=== PATIENT | female | born 1965 | race Caucasian/White ===

== ENCOUNTER 2020-04-26 14:03 | Outpatient (REF) | payer MEDICARE, MEDICAID, SELFPAY | END 2020-04-26 14:04 | disposition home or self-care (01) | LOC: HO.LAB 14:03 | PROVIDERS: PCP Internal Medicine; Referring Provider Internal Medicine; Visit Provider Physician Assistant | DX: Z01.812 Encounter for preprocedural laboratory examination (principal); M17.11 Unilateral primary osteoarthritis, right knee; Z87.891 Personal history of nicotine dependence; Z88.0 Allergy status to penicillin; Z88.8 Allergy status to other drugs, medicaments and biological substances | CPT/HCPCS: 99214 ==

== ENCOUNTER 2020-05-01 06:26 | Inpatient (IN) | payer MEDICARE, MEDICAID, SELFPAY ==
[2020-04-16 09:03] VITALS: BMI 29.5
[2020-04-17 12:24] VITALS: BMI 28.3
[2020-04-17 12:49] VITALS: BP 128/79; PULSE 67; RESP 18; O2SAT 97
--- NOTE | 2020-04-17 13:15 | HO.ANESPROP2 ---
Documented by User: Helene Cruzney 04/30/20 08:58 HPI - Anesthesia Eval Consult details Narrative: 54yo F for R TKA PCP cleared anaphylaxis to morphine, demerol, diclofenac, flagyl, celebrex PMFSH Past Medical History Medical History Anemia Arthritis Asthma Back pain Depression Elevated cholesterol GERD (gastroesophageal reflux disease) History of fibromyalgia History of headache History of traumatic head injury Hx of fracture of patella Hx of strabismus Wears reading eyeglasses Functional capacity: independent ambulation Surgical History Surgical History H/O colonoscopy History of esophagogastroduodenoscopy (EGD) History of surgery on wrist Hx of arthroscopic knee surgery Hx of reduction mammoplasty History of Problems with Anesthesia: No Social History Social History Are you a primary spiritual care coordinator to a significant other at home: Yes Do you presently have visiting nurse or other home services: No Smoking Status: Former smoker Years Smoked: 18 Smoked in Last 30 Days: No Smoking Quit Date: 2002 Use of substances other than those prescribed or required for medical reasons: Yes Substance Use Type: Marijuana Substance Use Frequency: Daily Have you been hit, kicked, punched, or otherwise hurt by someone within the past year? If so, by whom?: No Advance Directives Information Provided: No Recently lost weight without trying: Yes Meds Allergies Allergy/AdvReac Type Severity Reaction Status Date / Time meperidine [Demerol] Allergy Severe Anaphylaxis Verified 04/26/20 14:06 metronidazole [Flagyl] Allergy Severe Anaphylaxis Verified 04/26/20 14:06 morphine Allergy Severe Anaphylaxis Verified 04/26/20 14:06 celecoxib [Celebrex] Allergy Intermediate shortness Verified 04/26/20 14:06 of breath ciprofloxacin [Cipro] Allergy Intermediate hives Verified 04/26/20 14:06 nitrofurantoin [Macrobid] Allergy Intermediate hives Verified 04/26/20 14:06 penicillin V Allergy Intermediate Rash Verified 04/26/20 14:06 Diclofenac Potassium Allergy Severe Anaphylaxis Uncoded 04/17/20 12:48 Benadryl Allergy Intermediate Itching Uncoded 04/17/20 12:48 Home Medications Medication Instructions Recorded Confirmed Type acetaminophen 500 mg PO Q6H PRN 04/17/20 04/17/20 History albuterol 90 mcg INHALATION Q4-6H PRN 04/17/20 04/17/20 History atorvastatin 1 tab PO BEDTIME 04/17/20 04/17/20 History cholecalciferol (vitamin D3) 1 tab PO BEDTIME 04/17/20 04/17/20 History [Vitamin D3] pregabalin 1 cap PO BEDTIME 04/17/20 04/17/20 History pregabalin 1 cap PO QAM 04/17/20 04/17/20 History Exam Exam Date and Time: April 17, 2020 1315 Height,Weight and Vital Signs: Height 4 ft 11.5 in Weight 64.864 kg Last Vital Signs Pulse 67 04/17/20 12:49 Resp 18 04/17/20 12:49 BP 128/79 04/17/20 12:49 Pulse Ox 97 04/17/20 12:49 Pertinent Lab Results Pertinent Lab Results: Laboratory Tests 03/28/20 03/28/20 04/26/20 11:15 11:15 15:05 WBC 8.6 Hgb 14.0 Hct 41.7 Plt Count 352 Sodium 148 H Potassium 5.4 H Chloride 111 H BUN 14 Creatinine 0.78 Blood Type A Positive Antibody Screen NEGATIVE Narrative Narrative: EKG 03/2020: NSR with SA @ 74 Airway Mallampati Class: I TM Dist: >3cm Neck ROM: Full Loose/Missing/Broken Teeth: Yes (Molars missing) Heart: RRR Lungs: CTAB Assessment and Plan Assessment Anesthesia Assessment: Anesthesia Plan Discussed and PAT Visit Documented by User: Shayne Nugent MD 05/01/20 07:33 [facility] Past Medical History Medical History Anemia Arthritis Asthma Back pain Depression Elevated cholesterol GERD (gastroesophageal reflux disease) History of fibromyalgia History of headache History of traumatic head injury Hx of fracture of patella Hx of strabismus Wears reading eyeglasses Surgical History Surgical History H/O colonoscopy History of esophagogastroduodenoscopy (EGD) History of surgery on wrist Hx of arthroscopic knee surgery Hx of reduction mammoplasty Social History Social History Are you a primary spiritual care coordinator to a significant other at home: Yes Do you presently have visiting nurse or other home services: No Smoking Status: Former smoker Years Smoked: 18 Smoked in Last 30 Days: No Smoking Quit Date: 2002 Use of substances other than those prescribed or required for medical reasons: Yes Substance Use Type: Marijuana Substance Use Frequency: Daily Have you been hit, kicked, punched, or otherwise hurt by someone within the past year? If so, by whom?: No Advance Directives Information Provided: No Recently lost weight without trying: Yes Meds Allergies Allergy/AdvReac Type Severity Reaction Status Date / Time meperidine [Demerol] Allergy Severe Anaphylaxis Verified 04/26/20 14:06 metronidazole [Flagyl] Allergy Severe Anaphylaxis Verified 04/26/20 14:06 morphine Allergy Severe Anaphylaxis Verified 04/26/20 14:06 celecoxib [Celebrex] Allergy Intermediate shortness Verified 04/26/20 14:06 of breath ciprofloxacin [Cipro] Allergy Intermediate hives Verified 04/26/20 14:06 nitrofurantoin [Macrobid] Allergy Intermediate hives Verified 04/26/20 14:06 penicillin V Allergy Intermediate Rash Verified 04/26/20 14:06 Diclofenac Potassium Allergy Severe Anaphylaxis Uncoded 04/17/20 12:48 Benadryl Allergy Intermediate Itching Uncoded 04/17/20 12:48 Home Medications Medication Instructions Recorded Confirmed Type acetaminophen 500 mg PO Q6H PRN 04/17/20 04/17/20 History albuterol 90 mcg INHALATION Q4-6H PRN 04/17/20 04/17/20 History atorvastatin 1 tab PO BEDTIME 04/17/20 04/17/20 History cholecalciferol (vitamin D3) 1 tab PO BEDTIME 04/17/20 04/17/20 History [Vitamin D3] pregabalin 1 cap PO BEDTIME 04/17/20 04/17/20 History pregabalin 1 cap PO QAM 04/17/20 04/17/20 History Assessment and Plan Assessment Anesthesia Assessment: Anesthesia Plan Discussed and Chart Reviewed Final Anesthetic Review NPO: Yes ASA Class: II Final Preanesthetic Review: No Changes in Pt Med Stat, Meds/Allgs Chart Reviewed, Consent Obtained/Reviewed and Anes Risks/Benef Reviewed Patient Risk: Low Procedure Risk: Intermediate Anesthetic Plan Anesthetic Plan: MAC:, Spinal and Regional Block Disposition: Standard PACU
--- NOTE | 2020-04-17 13:40 | SUR.PREOP ---
povidone iodine swab not done, entered for PAT by ortho office, needs to be done day of surgery
[2020-04-17 15:42] LABS: MRSA Nasal PCR NEGATIVE (Negative); SA Nasal PCR NEGATIVE (Negative)
[2020-05-01] VITALS (13 sets, daily range): BP systolic 99–159; BP diastolic 61–80; PULSE 60–94; RESP 16–20; TEMP 36.1–36.8; O2SAT 96–100
[2020-05-01] MEDS: Lactated Ringers 1,000 ML 100 ML IVCONT (06:39)
[2020-05-01] MEDS: Gabapentin 600 MG TABLET PO (06:41)
--- NOTE | 2020-05-01 06:59 | PC.NURSE ---
REGARDING USE OF INHALER PATIENT STATES I MADE A MISTAKE ONCE WHEN I WAS CLEANING AND MIXED CLOROX AND AJAX BY ACCIDENT AND THEN THEY GAVE ME AN INHALER. I DONT KNOW WHY. I HAVE NEVER NEEDED OR USED IT AND THEY KEEP GIVING IT TO ME. DENIES ANY USE OF INHALER, DENIES WHEEZING OR SOB. LUNG SOUNDS CLEAR THROUGHOUT.
[2020-05-01 07:01] LABS: Anion Gap 13 (12-20); Carbon Dioxide 27 mmol/L (22-29); Chloride 104 mmol/L (96-108); Sodium 140 mmol/L (135-145)
[2020-05-01 07:03] LABS: SARS COV2 PCR INHOUSE NEGATIVE (Negative)
--- NOTE | 2020-05-01 07:41 | MHC.SHP ---
Pre-Procedural Eval Section A The patient is an INPATIENT: No Changes since office visit: Yes Patient answered all questions; No Cold of Flu in the past 2 weeks, No New Medical Problems and No Changes in Medication The History & Physical has been completed within 30 days and I have reviewed it.: Yes Section B Chief Complaint: Right Knee Osteoarthritis/total knee arthroplasty Allergies: Allergies Allergy/AdvReac Type Severity Reaction Status Date / Time meperidine [Demerol] Allergy Severe Anaphylaxis Verified 04/26/20 14:06 metronidazole [Flagyl] Allergy Severe Anaphylaxis Verified 04/26/20 14:06 morphine Allergy Severe Anaphylaxis Verified 04/26/20 14:06 celecoxib [Celebrex] Allergy Intermediate shortness Verified 04/26/20 14:06 of breath ciprofloxacin [Cipro] Allergy Intermediate hives Verified 04/26/20 14:06 nitrofurantoin [Macrobid] Allergy Intermediate hives Verified 04/26/20 14:06 penicillin V Allergy Intermediate Rash Verified 04/26/20 14:06 Diclofenac Potassium Allergy Severe Anaphylaxis Uncoded 04/17/20 12:48 Benadryl Allergy Intermediate Itching Uncoded 04/17/20 12:48 Plan Patient has been examined and remains a candidate for the planned procedure
[2020-05-01] MEDS: vancomycin HCL 1,000 MG in 0.9 % Sodium Chloride 250 ML 270 MG IV ×2 (07:43→20:24)
--- NOTE | 2020-05-01 09:07 | PM.OP ---
Brief Operative Note Date of procedure: 05/01/20 Pre-op diagnosis: right knee oa Post-op diagnosis: same Procedure: right tka Implants: javier triathalon press fit /a Surgeon: Lalito Wong MD Anesthesia: regional and spinal Estimated blood loss (mL): 150 IV fluids (mL): 500 Pathology: other Condition: stable Disposition: PACU
--- NOTE | 2020-05-01 10:39 | XR_ITS ---
EXAMINATION: XR KNEE, RIGHT CLINICAL INFORMATION: Post right knee replacement COMPARISON: Previous x-ray May 2019 TECHNIQUE: Two views of the right knee. FINDINGS: There is a new 3 component right knee replacement in satisfactory position. No fracture or dislocation is seen. There are postoperative changes of the soft tissues. XR/XR knee RT 2V IMPRESSION: Satisfactory appearance of right knee replacement.
[2020-05-01] MEDS: Dextrose 5 % and 0.9 % NaCl 1,000 ML 80 ML IVCONT (10:50)
[2020-05-01] MEDS: 0.9 % Sodium Chloride Flush 3 ML SYRINGE IVFLUSH (10:51)
--- NOTE | 2020-05-01 11:29 | PM.IMCN ---
History of Present Illness Data of Consult Service Date: 05/01/20 <JUHI Jackson - Last Filed: 05/01/20 11:50> Requesting physician: Ed Rowe <JUHI Jackson - Last Filed: 05/01/20 11:50> Primary Care Provider: Yomaira Corrigan MD <JUHI Jackson - Last Filed: 05/01/20 11:50> HPI Reason for consult: medical management <JUHI Jackson - Last Filed: 05/01/20 11:50> this is a 54-year-old female who was admitted to the Orthopedic Service for scheduled right total knee arthroplasty. The hospitalists were asked to see her in consultation for medical management. Patient has a history of fibromyalgia and dyslipidemia. She has just returned to the floor from PACU and has not yet eaten or voided. She has no specific complaints at this time. <JUHI Jackson - Last Filed: 05/01/20 11:50> Review of Systems Review of Systems: Yes all other systems are reviewed and are negative <JUHI Jackson - Last Filed: 05/01/20 11:50> Constitutional: Constitutional: Denies chills and Denies fever(s) <JUHI Jackson - Last Filed: 05/01/20 11:50> Cardiovascular: Cardiovascular: Denies chest pain <JUHI Jackson - Last Filed: 05/01/20 11:50> Respiratory: Respiratory: Denies cough <JUHI Jackson - Last Filed: 05/01/20 11:50> Gastrointestinal: Gastrointestinal: Denies abdominal pain <JUHI Jackson Last Filed: 05/01/20 11:50> [facility] Medical History: Medical History (Updated 05/01/20 @ 11:46 by JUHI Jackson) Anemia Arthritis Asthma Back pain Depression Elevated cholesterol GERD (gastroesophageal reflux disease) History of fibromyalgia History of headache History of traumatic head injury Hx of fracture of patella Hx of strabismus Wears reading eyeglasses <JUHI Jackson Last Filed: 05/01/20 11:50> Functional capacity: independent ambulation <JUHI Jackson Last Filed: 05/01/20 11:50> Surgical History: Surgical History (Updated 05/02/20 @ 09:00 by Ed Rowe PA-C) H/O colonoscopy History of esophagogastroduodenoscopy (EGD) History of surgery on wrist Hx of arthroscopic knee surgery Hx of reduction mammoplasty <JUHI Jackson Last Filed: 05/01/20 11:50> Social History: Social History Are you a primary dialysis patient care technician to a significant other at home: Yes Do you presently have visiting nurse or other home services: No Smoking Status: Former smoker Years Smoked: 18 Smoked in Last 30 Days: No Smoking Quit Date: 2002 Use of substances other than those prescribed or required for medical reasons: Yes Substance Use Type: Marijuana Substance Use Frequency: Daily Currently Displaying Signs/Symptoms of Drug Intoxication Withdrawal: No Have you been hit, kicked, punched, or otherwise hurt by someone within the past year? If so, by whom?: No Advance Directives Information Provided: No Do you have thoughts of harming others: None Do you have a plan to hurt others: No Plan Recently lost weight without trying: Yes <JUHI Jackson Last Filed: 05/01/20 11:50> Meds Allergies/Adverse reactions: Allergies Allergy/AdvReac Type Severity Reaction Status Date / Time meperidine [Demerol] Allergy Severe Anaphylaxis Verified 04/26/20 14:06 metronidazole [Flagyl] Allergy Severe Anaphylaxis Verified 04/26/20 14:06 morphine Allergy Severe Anaphylaxis Verified 04/26/20 14:06 celecoxib [Celebrex] Allergy Intermediate shortness Verified 04/26/20 14:06 of breath ciprofloxacin [Cipro] Allergy Intermediate hives Verified 04/26/20 14:06 nitrofurantoin [Macrobid] Allergy Intermediate hives Verified 04/26/20 14:06 penicillin V Allergy Intermediate Rash Verified 04/26/20 14:06 Diclofenac Potassium Allergy Severe Anaphylaxis Uncoded 04/17/20 12:48 Benadryl Allergy Intermediate Itching Uncoded 04/17/20 12:48 <JUHI Jackson Last Filed: 05/01/20 11:50> Home medications: Home Medications Medication Instructions Recorded Confirmed Type acetaminophen 500 mg PO Q6H PRN 04/17/20 04/17/20 History albuterol 90 mcg INHALATION Q4-6H PRN 04/17/20 04/17/20 History atorvastatin 1 tab PO BEDTIME 04/17/20 04/17/20 History cholecalciferol (vitamin D3) 1 tab PO BEDTIME 04/17/20 04/17/20 History [Vitamin D3] pregabalin 1 cap PO BEDTIME 04/17/20 04/17/20 History pregabalin 1 cap PO QAM 04/17/20 04/17/20 History <JUHI Jackson - Last Filed: 05/01/20 11:50> Physical Exam Vital Signs and Narrative: Vital Signs: Last Vital Signs Temp 97.7 F 05/01/20 11:08 Pulse 65 05/01/20 11:08 Resp 18 05/01/20 11:08 BP 131/68 05/01/20 11:08 Pulse Ox 99 05/01/20 11:08 Body Mass Index 28.3 <JUHI Jackson - Last Filed: 05/01/20 11:50> Const: Nutritional Appearance: well nourished <JUHI Jackson Last Filed: 05/01/20 11:50> Orientation/consciousness: patient oriented x3 <JUHI Jackson Last Filed: 05/01/20 11:50> HENMT: Head: Yes normocephalic and Yes atraumatic <JUHI Jackson - Last Filed: 05/01/20 11:50> Eyes: Sclerae: sclerae normal <JUHI Jackson Last Filed: 05/01/20 11:50> Chest: Chest palpation & inspection: normal inspection of the chest <JUHI Jackson Last Filed: 05/01/20 11:50> Resp: Effort & Inspection: normal respiratory effort and no respiratory distress <JUHI Jackson Last Filed: 05/01/20 11:50> Auscultation: clear to auscultation bilaterally <JUHI Jackson Last Filed: 05/01/20 11:50> Cardio: Rate: regular rate <JUHI Jackson Last Filed: 05/01/20 11:50> Rhythm: regular rhythm <JUHI Jackson Last Filed: 05/01/20 11:50> GI: Palpation (GI): Soft to palpation and nontender <JUHI Jacksno Last Filed: 05/01/20 11:50> Skin: General skin exam: no rashes or lesions noted <JUHI Jackson Last Filed: 05/01/20 11:50> Neuro: General: patient oriented x3 <JUHI Jackson Last Filed: 05/01/20 11:50> Cranial nerves: Yes CN's II-XII intact bilaterally <JUHI Jackson Last Filed: 05/01/20 11:50> Extrem: General: Yes normal to inspection <JUHI Jackson Last Filed: 05/01/20 11:50> Results Labs Labs: Laboratory Tests 04/17/20 04/26/20 05/01/20 13:00 15:05 05:43 Sodium Potassium Chloride Carbon Dioxide Anion Gap Nasal Screen MRSA (PCR) NEGATIVE Nasal S. aureus Screen NEGATIVE Nasal MRSA/S.aureus Interp SEE NOTE Coronavirus (PCR) NEGATIVE COVID-19 PCR Cancelled Blood Type A Positive Antibody Screen NEGATIVE 05/01/20 05/01/20 06:22 06:22 Sodium 140 Potassium 4.0 Chloride 104 Carbon Dioxide 27 Anion Gap 13 Nasal Screen MRSA (PCR) Nasal S. aureus Screen Nasal MRSA/S.aureus Interp Coronavirus (PCR) COVID-19 PCR Blood Type A Positive Antibody Screen <JUHI Jackson Last Filed: 05/01/20 11:50> Assessment and Plan (1) Elevated cholesterol: Status: Acute <JUHI Jackson Last Filed: 05/01/20 11:50> this is a 54-year-old female with a history of fibromyalgia, dyslipidemia admitted for elective right total knee arthroplasty s/p right total knee arthroplasty management per Orthopedic Service would recommend following basic labs such as CBC, BMP fibromyalgia continue Lyrica dyslipidemia continue statin there are no other active medical conditions at this time. thank you for allowing us to participate in the care of this patient. We will follow along with you This case was discussed with Dr. Herman <JUHI Jackson - Last Filed: 05/01/20 11:50>
[2020-05-01] MEDS: Pregabalin 200 MG CAPSULE PO (12:45)
[2020-05-01] MEDS: Acetaminophen 325 MG TABLET 650 MG PO ×2 (12:45→18:23)
[2020-05-01] MEDS: HYDROmorphone HCl 0.5 MG/0.5 ML SYRINGE 0.25 MG IVPUSH ×3 (12:49→21:30)
--- NOTE | 2020-05-01 13:00 | OP_ITS ---
SURGEON: Lalito Wong MD INDICATIONS: This is a 54-year-old female with long-standing knee pain secondary to osteoarthritis, unresponsive to conservative measures, who has consented to undergo a right knee arthroplasty. PREOPERATIVE DIAGNOSIS: Right knee osteoarthritis. POSTOPERATIVE DIAGNOSIS: Right knee osteoarthritis. PROCEDURE PERFORMED: Right total knee arthroplasty. ESTIMATED BLOOD LOSS: 150 mL. COMPLICATIONS: None. ANESTHESIA: Spinal and regional. ASSISTANTS: SPECIMENS: FLUIDS: 500. PROCEDURE IN DETAIL: The patient was brought to the operative room, placed supine on the operative table, and prepped and draped in standard sterile fashion. Time-out was called to identify proper site, proper procedure, and proper surgeon. IV antibiotics per weight were administered. I began by making a standard midline incision down in the retinaculum and performed a medial parapatellar arthrotomy. Immediately evident were loose bodies in the anterior interval. I removed these and examined the knee. She had eburnation of the weightbearing portion of the lateral femoral condyle, lateral tibial plateau with posttraumatic scarring of the lateral capsule which made the knee very tight. I placed my retractors, flexed up the knee, removed the fat pad, used René's line to drill my intramedullary femoral guide, made my distal femoral cut in 5 degrees of valgus. I then excised 2 femur, made my anterior and posterior chamfer cuts, making sure not to notch in protecting soft tissue at all times. I then turned my attention to the tibia, where I took approximately 9 mm off the medial side in line with the tibial crest. Extension block was placed to ensure appropriate bony resection. I was happy with this and a 2 tibial trial was placed. The knee was taken through range of motion with trials. I was happy with the range and stability. Therefore, the undersurface of the patella was resurfaced and asymmetric 32A patella was placed. Again, I took the knee through range of motion and was happy with the stability, range, and tracking. I then drilled my lug holes, prepared my tibial metaphysis, and all the instrumentation was removed. Copious irrigation was performed, and I press-fit tibia and femur in standard fashion and patella. I then trialed a 9. With full range of motion, I could not get an 11, therefore 9 was placed. The patient was then irrigated copiously. 3-minute iodine soak with local TXA was applied, and wound was closed in a layered fashion with roland on the skin. The patient was extubated, brought to recovery room in stable condition. There were no known complications. RIVERBOAT CAPTAIN: JUHI Kapoor. GRAFT OR IMPLANTS: [employer], press-fit, 9CR/32A. Lalito Wong MD NE/MODL / [id number]
[2020-05-01] MEDS: oxyCODONE HCl Immed Release 5 MG TABLET 10 MG PO ×3 (14:08→22:40)
[2020-05-01] MEDS: ondansetron HCL 4 MG/2 ML VIAL IVPUSH ×2 (14:09→21:30)
[2020-05-01] MEDS: Pregabalin 150 MG CAPSULE 300 MG PO (20:25)
[2020-05-01] MEDS: Atorvastatin Calcium 80 MG TABLET PO (20:25)
[2020-05-01] MEDS: oxyCODONE HCl ER 10 MG TAB.ER.12H PO (20:25)
[2020-05-02] VITALS (8 sets, daily range): BP systolic 136–160; BP diastolic 62–80; PULSE 86–100; RESP 16–19; TEMP 36.1–36.9; O2SAT 94–98
[2020-05-02] MEDS: Dextrose 5 % and 0.9 % NaCl 1,000 ML 80 ML IVCONT ×2 (00:29→13:09)
[2020-05-02] MEDS: HYDROmorphone HCl 0.5 MG/0.5 ML SYRINGE 0.25 MG IVPUSH ×3 (01:25→10:07)
[2020-05-02] MEDS: 0.9 % Sodium Chloride Flush 3 ML SYRINGE IVFLUSH (01:25)
[2020-05-02] MEDS: oxyCODONE HCl Immed Release 5 MG TABLET 10 MG PO ×5 (04:51→22:11)
[2020-05-02 06:48] LABS: Hematocrit 30.6 % (37-47); Hemoglobin 10.2 g/dl (12.0-16.0)
[2020-05-02 07:19] LABS: Anion Gap 12 (12-20); Blood Urea Nitrogen 12 mg/dL (9-16); Carbon Dioxide 26 mmol/L (22-29); Chloride 105 mmol/L (96-108); Creatinine Clr Calc Pharmacy 75.6; Estimated Glomerular Filt Rate > 60; Glucose Fasting 143 mg/dL (60-99); Potassium 4.6 mmol/l (3.3-5.1); Sodium 138 mmol/L (135-145)
[2020-05-02] MEDS: Acetaminophen 325 MG TABLET 650 MG PO ×3 (07:30→20:28)
[2020-05-02] MEDS: Pregabalin 200 MG CAPSULE PO (08:19)
[2020-05-02] MEDS: oxyCODONE HCl ER 10 MG TAB.ER.12H PO ×2 (08:19→20:28)
--- NOTE | 2020-05-02 08:50 | HO.POSTANES ---
Post Anesthesia Evaluation Post Anesthesia Evaluation Vital Signs: Vital Signs Temp Pulse Resp BP Pulse Ox 05/02/20 03:10 98.4 F 98 17 149/78 H 94 05/01/20 23:37 97.2 F 93 16 155/77 H 96 Anesthesia: Spinal and Nerve Block (Adductor canal block) Mental Status: Awake Pain Control: Satisfactory Nausea/Vomiting: None Hydration: Adequate Anesthesia-Related Issues: No Anes. Related Issues
--- NOTE | 2020-05-02 08:55 | PM.PNORT ---
Subjective Subjective Principal diagnosis: Postop day 1 status post right TKA Interval history: Postop day 1 status post right TKA No overnight events, she was in some discomfort last night due to the pain and having a hard time controlling this. She denies shortness of breath chest pain or palpitations. She was out of bed ambulating with physical therapy down the ruffin with a walker doing okay Physical Exam Vital Signs: Vital Signs: Vital Signs Temp Pulse Resp BP Pulse Ox 05/02/20 08:00 98.2 F 99 19 160/80 H 96 05/02/20 03:10 98.4 F 98 17 149/78 H 94 05/01/20 23:37 97.2 F 93 16 155/77 H 96 05/01/20 20:12 97.4 F 77 18 159/80 H 97 05/01/20 19:04 98.2 F 94 19 120/62 97 05/01/20 16:35 97.1 F 66 18 145/73 H 100 05/01/20 11:08 97.7 F 65 18 131/68 99 05/01/20 10:25 64 18 130/71 97 05/01/20 10:10 61 16 120/61 98 05/01/20 09:55 97.4 F 62 16 115/61 98 05/01/20 09:40 60 16 110/63 98 05/01/20 09:35 67 18 113/66 98 05/01/20 09:30 76 16 99/66 99 05/01/20 09:25 97.0 F 79 16 107/69 98 Body Mass Index 28.3 Const: General: cooperative, healthy appearing and no acute distress Resp: Effort & Inspection: normal respiratory effort and able to speak in complete sentences Cardio: Rate: regular rate Peripheral pulses: Peripheral pulses 2+ throughout GI: Inspection: Yes normal to inspection Palpation (GI): Soft to palpation Skin: General skin exam: no rashes or lesions noted Extrem: Other: Right knee her bandage intact no drainage. No erythema, mild swelling. Range of motion 5-85. Progress Note: A&P Assessment and plan (1) Status post total right knee replacement: Status: Acute Assessment and Plan: Continue pain mgmnt Begin aspirin dvt ppx begin PT for right TKA Dispo planning-Pending PT eval, pain mgmnt Fall Risk Details Current Medications: Current Medications Generic Name Dose Route Start Last Admin Trade Name Freq PRN Reason Stop Dose Admin Acetaminophen 650 mg 05/01/20 10:39 05/02/20 07:30 Acetaminophen 325 Mg Tablet PO 650 mg Q6H PRN Administration Pain, Mild (Pain Scale 1-3) Atorvastatin Calcium 80 mg 05/01/20 21:00 05/01/20 20:25 Atorvastatin Calcium 80 Mg Tablet PO 80 mg BEDTIME NICKOLAS Administration Hydromorphone HCl 0.25 mg 05/01/20 10:39 05/02/20 05:41 Hydromorphone Hcl 0.5 Mg/0.5 Ml Syringe IVPUSH 0.25 mg Q4H PRN Administration Pain, Severe (Pain Scale 7-10) Dextrose/Sodium Chloride 1,000 mls @ 80 mls/hr 05/01/20 10:39 05/02/20 00:29 D5ns IVCONT 80 mls/hr .[id number] NICKOLAS Administration Naloxone HCl 0.2 mg 05/01/20 10:39 Naloxone Hcl 0.4 Mg/Ml Vial IVPUSH Q2M PRN Excessive sedation or RR < 8 Ondansetron HCl 4 mg 05/01/20 13:54 05/01/20 21:30 Ondansetron Hcl 4 Mg/2 Ml Vial IVPUSH 4 mg Q4H PRN Administration Nausea Oxycodone HCl 10 mg 05/01/20 13:55 05/02/20 04:51 Oxycodone Hcl Immed Release 5 Mg Tablet PO 10 mg Q4H PRN Administration Pain, Moderate (Pain Scale 4-6 Oxycodone HCl 10 mg 05/01/20 21:00 05/02/20 08:19 Oxycodone Hcl Er 10 Mg Tab.Er.12h PO 10 mg BID NICKOLAS Administration Pregabalin 200 mg 05/01/20 12:00 05/02/20 08:19 Pregabalin 200 Mg Capsule PO 200 mg DAILY NICKOLAS Administration Pregabalin 300 mg 05/01/20 21:00 05/01/20 20:25 Pregabalin 150 Mg Capsule PO 300 mg BEDTIME NICKOLAS Administration Senna 17.2 mg 05/01/20 10:39 Sennosides 8.6 Mg Tablet PO BEDTIME PRN Constipation Sodium Chloride 3 ml 05/01/20 16:00 05/02/20 07:25 0.9 % Sodium Chloride Flush 3 Ml Syringe IVFLUSH Not Given QSHIFT NICKOLAS Time Spent With Patient Time: Total time spent is greater than 50% in coordination of care (as documented) at patient's floor/unit and/or counseling patient: Time with patient: 15 - 24 minutes
--- NOTE | 2020-05-02 09:39 | MHC.CM.PN ---
SPECIAL DELIVERY CLERK COMPLETED WIHT PT WHO REPORTS SHE LIVES AT HOME WITH HER BROTHER WHO IS BED BOUND. PT REPORTS SHE DOES NOT HAVE ANY SERVICES AND DOES NOT USE ANY DME. PT STATES SHE HAS A HCP ALREADY THAT NAMES HER SON HER AGENT. PT CONFIRMS HER PCP IS MO[facility]ERS. PT REPORTS HER ONLY CONCERN RELATED TO DISCHARGE IS BEING ABLE TO GET TO HER AFTERCARE APPTS. PT REPORTS SHE HAS BEEN APPROVED FOR PT1 THROUGH [employer] BUT HER PCP HAS REFUSED TO ARRANGE RIDES FOR HER. PT REPORTS SHE USUALLY GOES TO [facility] FOR HER PRIMARY CARE, WHICH IS VERY CLOSE TO HER HOME, BUT SHE WILL NEED TO COME HERE FOR HER FOLLOW UP CARE. CM WILL CONTACT [employer] TO DETERMINE IF A PT1 CAN BE ARRANGED PRIOR TO DC. CURRENT DC PLAN IS HOME WITH NO SERVICES FAMILY TO TRANSPORT IMM DELIVERED
--- NOTE | 2020-05-02 09:41 | P.PNIM_ITS ---
Subjective Subjective Date of Service: 05/02/20 Interval History: Patient reports ongoing pain in her right knee. Some mild nausea following IV pain medication. Has been up and ambulating. Tolerating diet. Review of Systems Review of Systems: Yes all other systems are reviewed and are negative Cardiovascular Cardiovascular: Denies chest pain and Denies dyspnea Respiratory Respiratory: Denies cough and Denies dyspnea Gastrointestinal Gastrointestinal: Denies diarrhea, Reports nausea and Denies vomiting Physical Exam Vital Signs: Vital Signs: Vital Signs Temp Pulse Resp BP Pulse Ox 05/02/20 08:00 98.2 F 99 19 160/80 H 96 05/02/20 03:10 98.4 F 98 17 149/78 H 94 05/01/20 23:37 97.2 F 93 16 155/77 H 96 05/01/20 20:12 97.4 F 77 18 159/80 H 97 05/01/20 19:04 98.2 F 94 19 120/62 97 05/01/20 16:35 97.1 F 66 18 145/73 H 100 05/01/20 11:08 97.7 F 65 18 131/68 99 05/01/20 10:25 64 18 130/71 97 05/01/20 10:10 61 16 120/61 98 05/01/20 09:55 97.4 F 62 16 115/61 98 Body Mass Index 28.3 Const: Nutritional Appearance: well nourished Orientation/consciousness: patient oriented x3 HENMT: Head: Yes normocephalic and Yes atraumatic Eyes: Sclerae: sclerae normal Chest: Chest palpation & inspection: normal inspection of the chest Resp: Effort & Inspection: normal respiratory effort and no respiratory di stress Auscultation: clear to auscultation bilaterally Cardio: Rate: regular rate Rhythm: regular rhythm GI: Palpation (GI): Soft to palpation and nontender Skin: General skin exam: no rashes or lesions noted Neuro: General: patient oriented x3 Cranial nerves: Yes CN's II-XII intact bilaterally and Yes Bilaterally intact EOM present Extrem: Other: Right knee Stephen bandage in place without staining Objective Data Current Medications Generic Name Dose Route Start Last Admin Trade Name Freq PRN Reason Stop Dose Admin Acetaminophen 650 mg 05/01/20 10:39 05/02/20 07:30 Acetaminophen 325 Mg Tablet PO 650 mg Q6H PRN Administration Pain, Mild (Pain Scale 1-3) Atorvastatin Calcium 80 mg 05/01/20 21:00 05/01/20 20:25 Atorvastatin Calcium 80 Mg Tablet PO 80 mg BEDTIME NICKOLAS Administration Hydromorphone HCl 0.25 mg 05/01/20 10:39 05/02/20 05:41 Hydromorphone Hcl 0.5 Mg/0.5 Ml Syringe IVPUSH 0.25 mg Q4H PRN Administration Pain, Severe (Pain Scale 7-10) Dextrose/Sodium Chloride 1,000 mls @ 80 mls/hr 05/01/20 10:39 05/02/20 00:29 D5ns IVCONT 80 mls/hr .[id number] NCIKOLAS Administration Naloxone HCl 0.2 mg 05/01/20 10:39 Naloxone Hcl 0.4 Mg/Ml Vial IVPUSH Q2M PRN Excessive sedation or RR < 8 Ondansetron HCl 4 mg 05/01/20 13:54 05/01/20 21:30 Ondansetron Hcl 4 Mg/2 Ml Vial IVPUSH 4 mg Q4H PRN Administration Nausea Oxycodone HCl 10 mg 05/01/20 13:55 05/02/20 09:02 Oxycodone Hcl Immed Release 5 Mg Tablet PO 10 mg Q4H PRN Administration Pain, Moderate (Pain Scale 4-6 Oxycodone HCl 10 mg 05/01/20 21:00 05/02/20 08:19 Oxycodone Hcl Er 10 Mg Tab.Er.12h PO 10 mg BID NICKOLAS Administration Pregabalin 200 mg 05/01/20 12:00 05/02/20 08:19 Pregabalin 200 Mg Capsule PO 200 mg DAILY NICKOLAS Administration Pregabalin 300 mg 05/01/20 21:00 05/01/20 20:25 Pregabalin 150 Mg Capsule PO 300 mg BEDTIME NICKOLAS Administration Senna 17.2 mg 05/01/20 10:39 Sennosides 8.6 Mg Tablet PO BEDTIME PRN Constipation Sodium Chloride 3 ml 05/01/20 16:00 05/02/20 07:25 0.9 % Sodium Chloride Flush 3 Ml Syringe IVFLUSH Not Given QSHIFT [facility] Labs CBC & Chem 7: 05/02/20 06:24 05/02/20 06:24 Assessment and Plan (1) Status post total right knee replacement: Status: Acute (2) Elevated cholesterol: Status: Acute Assessment and Plan: this is a 54-year-old female with a history of fibromyalgia, dyslipidemia admitted for elective right total knee arthroplasty s/p right total knee arthroplasty management per Orthopedic Service slight drop in H/H post surgery, no indication for transfusion fibromyalgia continue Lyrica dyslipidemia continue statin there are no other active medical conditions at this time. we will sign off. please feel free to call us if any issues arise. This case was discussed with Dr. Herman
[2020-05-02] MEDS: ondansetron HCL 4 MG/2 ML VIAL IVPUSH ×3 (10:08→18:53)
[2020-05-02] MEDS: Aspirin 325 MG TABLET PO ×2 (10:43→20:28)
[2020-05-02] MEDS: HYDROmorphone HCl 0.5 MG/0.5 ML SYRINGE IVPUSH ×2 (14:24→18:53)
[2020-05-02] MEDS: Sennosides 8.6 MG TABLET 17.2 MG PO (20:28)
[2020-05-02] MEDS: Pregabalin 150 MG CAPSULE 300 MG PO (20:28)
[2020-05-02] MEDS: Atorvastatin Calcium 80 MG TABLET PO (20:28)
[2020-05-03 00:35] VITALS: RESP 20
[2020-05-03] MEDS: HYDROmorphone HCl 0.5 MG/0.5 ML SYRINGE IVPUSH ×3 (00:35→10:13)
[2020-05-03] MEDS: Dextrose 5 % and 0.9 % NaCl 1,000 ML 80 ML IVCONT (02:09)
[2020-05-03] MEDS: oxyCODONE HCl Immed Release 5 MG TABLET 10 MG PO ×2 (02:16→07:31)
[2020-05-03 03:48] VITALS: BP 148/70; PULSE 100; RESP 18; TEMP 36.3; O2SAT 99
[2020-05-03 06:00] VITALS: RESP 20
[2020-05-03 06:42] LABS: Hematocrit 25.4 % (37-47); Hemoglobin 8.6 g/dl (12.0-16.0)
[2020-05-03 06:48] LABS: Anion Gap 11 (12-20); Blood Urea Nitrogen 7 mg/dL (9-16); Calcium 7.9 mg/dL (8.4-10.2); Carbon Dioxide 27 mmol/L (22-29); Chloride 105 mmol/L (96-108); Creatinine Clr Calc Pharmacy 82.9; Estimated Glomerular Filt Rate > 60; Glucose Fasting 115 mg/dL (60-99); Potassium 4.2 mmol/l (3.3-5.1); Sodium 139 mmol/L (135-145)
[2020-05-03] MEDS: Acetaminophen 325 MG TABLET 650 MG PO (07:31)
[2020-05-03 08:00] VITALS: BP 132/68; PULSE 53; RESP 20; TEMP 35.9; O2SAT 98
[2020-05-03] MEDS: Pregabalin 200 MG CAPSULE PO (08:37)
[2020-05-03] MEDS: oxyCODONE HCl ER 10 MG TAB.ER.12H PO (08:38)
[2020-05-03] MEDS: ondansetron HCL 4 MG/2 ML VIAL IVPUSH (08:38)
[2020-05-03] MEDS: Aspirin 325 MG TABLET PO (08:38)
--- NOTE | 2020-05-03 08:59 | MHC.CM.PN ---
DC today to home with NA. Family will provide transportation.
--- NOTE | 2020-05-03 10:01 | P.DS_ITS ---
DS: Providers Provider Date of admission: 05/01/20 06:26 Primary care physician: Yomaira Corrigan MD Consults: 05/01/20 10:39 Consult to Hospitalist Routine Consulting Provider: Hospitalist Reason for consultation: medical management DS: Diagnosis Discharge Diagnosis (1) Status post total right knee replacement: Status: Acute Problem details: Ms. Killian Was seen in our office for right knee pain. She was osteoarthritis of the right knee and after failing all conservative measures she continued to have difficulty with daily activities and ambulation; Therefore she agreed to move forward with right total knee arthroplasty. DS: Summary Hospital Course Hospital Course: Ms Killian underwent a successful right total knee arthroplasty she was transferred to PACU and then to the floor where she recovered. During her stay her vitals were stable afebrile 96.7 in her labs were unremarkable hemoglobin 8.6 hematocrit 25.4. Postop day 1 she was started on aspirin 325 mg p.o. b.i.d. for DVT prophylaxis and she received physical therapy services twice a day. Prior to discharge her Aquacel dressing was changed incision clean dry and intact and an Acticoat dressing was applied. Plan is to be discharged home with VNA services. Time Spent with Patient Time attestation: Total time spent providing and/or coordinating discharge services: Physical Exam Vital Signs: Vital Signs: Vital Signs Temp Pulse Resp BP Pulse Ox 05/03/20 08:00 96.7 F L 53 20 132/68 98 05/03/20 06:00 20 05/03/20 03:48 97.3 F 100 18 148/70 H 99 05/03/20 00:35 20 05/02/20 23:38 98.1 F 90 16 136/62 97 05/02/20 19:51 96.9 F 87 18 141/64 H 98 05/02/20 15:27 96.9 F 86 18 154/77 H 98 05/02/20 14:24 18 05/02/20 11:43 98.1 F 100 19 148/76 H 96 05/02/20 10:07 18 Body Mass Index 28.3 Const: General: cooperative, healthy appearing and no acute distress Resp: Effort & Inspection: normal respiratory effort and able to speak in complete sentences Cardio: Rate: regular rate Peripheral pulses: Peripheral pulses 2+ throughout GI: Inspection: Yes normal to inspection Palpation (GI): Soft to palpation Skin: General skin exam: no rashes or lesions noted Extrem: Other: Left knee incision clean dry and intact. No erythema or drainage. Mild swelling. Bruising to the lateral aspect of the knee. Calf supple nontender. DS: Data Data Completed and Pending Completed studies during hospitalization [Text1]: Pending at discharge 05/01/20 08:57 Surgical [PTH] Routine Labs on day of discharge: Labs from last 24 hours 05/03/20 05/03/20 06:06 06:06 Hgb 8.6 L Hct 25.4 L Sodium 139 Potassium 4.2 Chloride 105 Carbon Dioxide 27 Anion Gap 11 L BUN 7 L Creatinine 0.62 Estim Creat Clear Calc 82.9 Estimated GFR > 60 Fasting Glucose 115 H Calcium 7.9 L Discharge Plan Discharge Patient Disposition: Home Health Service Referrals: Kandi DE JESUS [Other] (Home care services will be provided by [facility]. They will call [facility] to set up a time for you 1st visit. ) Ed Rowe PA-C [Physician [employer]] - (2 weeks post op orthopedics) Discharge Medications: New acetaminophen 325 mg Tablet 650 mg PO Q6H PRN (Reason: Pain, Mild (Pain Scale 1-3)) 30 Days Qty: 240 RF: 0 aspirin 325 mg Tablet 325 mg PO BID 14 Days Qty: 28 RF: 0 oxycodone 10 mg tablet 10 mg PO Q4H PRN (Reason: Pain, Moderate (Pain Scale 4-6) 7 Days Qty: 42 RF: 0 sennosides [Senna Lax] 8.6 mg Tablet 17.2 mg PO BEDTIME PRN (Reason: Constipation) 30 Days Qty: 30 RF: 0 Continued atorvastatin 80 mg tablet 1 tab PO BEDTIME RF: 0 pregabalin 200 mg capsule 1 cap PO QAM RF: 0 pregabalin 300 mg capsule 1 cap PO BEDTIME RF: 0 cholecalciferol (vitamin D3) [Vitamin D3] 125 mcg (5,000 unit) tablet 1 tab PO BEDTIME RF: 0 albuterol 90 mcg/actuation Aerosol 90 mcg INHALATION Q4-6H PRN (Reason: Shortness Of Breath) RF: 0 (DME) walker Misc See Rx Instructions .MEDSUPPLY Qty: 1 RF: 0 Discontinued acetaminophen 500 mg Tablet 500 mg PO Q6H PRN (Reason: Pain) RF: 0 Discharge Orders: Discharge Order (Routine); Ordered 05/03/20 Ordered By: Ed Rowe Diet: regular diet Activity on Discharge: Use cane or walker Activity Restrictions/Additional Instructions: * Physical Therapy for ROM 0-120, quad strength, gait training . Use walker for ambulation * CPM machines 0-120 degrees * Limit stair climbing, No shower, No tub bath, No driving * Continue anticoagulant-aspirin x 14 days * Keep Aquacel dressing clean, dry and intact. * Follow up with orthopedics in 2 weeks Visit Report Forms: Patient Portal Discharge page Care Plan Goals: Restore function of right knee Health Concerns: None Plan of Treatment: Physical Therapy Pain management DVT prophylaxis
--- NOTE | 2020-05-03 10:04 | P.F2F_ITS ---
Service Date Service Date: 05/03/20 Reasons for Services overseeing care: Lalito Wong MD Homebound: Leaving the home is medically contraindicated at this time without the asist of a device and/or another person due th the listed conditions above and below. Certification: Based on the above findings, I certify that this patient is confined to the home and needs intermittent half-way care, physical therapy and/or speech therapy, or continues to need occupational therapy. The patient is under my care, and I have initiated the establishment of the plan of care. The patient will be followed by a physician who will periodically review the plan of care.
[2020-05-03 10:13] VITALS: RESP 18
[2020-05-03 10:49] VITALS: BP 132/68; PULSE 53; O2SAT 98
== END 2020-05-03 11:00 | disposition home health service (06) | DRG 470 ==
LOC: HO.SSSA 06:27 → HO.S3 09:39
PROVIDERS: Nurse Practitioner; Physician Assistant; Admitting Provider Orthopaedic Surgery; PCP Internal Medicine; Visit Provider Orthopaedic Surgery
PROC: 0SRC0JA Replacement of Right Knee Joint with Synthetic Substitute, Uncemented, Open Approach (ICD-10-PCS; CPT 27447; principal; 2020-05-01 07:30)
DX: M17.11 Unilateral primary osteoarthritis, right knee (principal); Z20.828 Contact with and (suspected) exposure to other viral communicable diseases; M79.7 Fibromyalgia; E78.5 Hyperlipidemia, unspecified; Z88.0 Allergy status to penicillin; Z79.899 Other long term (current) drug therapy
CPT/HCPCS: 36415; 73560; 80048; 80051; 85014; 85018; 86850; 86900; 86901; 87635; 87640; 87641; 88305; 88311; 97110; 97116; 97162; 97530; C1776; J0690; J1170; J2250; J2370; J2405; J3370

== ENCOUNTER → 2020-05-06 13:02 | Outpatient (BNVA) | payer MEDICARE, MEDICAID, SELFPAY | PROVIDERS: PCP Internal Medicine; Visit Provider Orthopaedic Surgery | DX: Z76.89 Persons encountering health services in other specified circumstances (principal) ==

== ENCOUNTER → 2020-05-08 13:13 | Outpatient (BNVA) | payer MEDICARE, MEDICAID, SELFPAY | PROVIDERS: PCP Internal Medicine; Visit Provider Orthopaedic Surgery | DX: Z76.89 Persons encountering health services in other specified circumstances (principal) ==

== ENCOUNTER → 2020-05-17 13:24 | Outpatient (BNVA) | payer MEDICARE, MEDICAID, SELFPAY | PROVIDERS: PCP Internal Medicine; Visit Provider Physician Assistant | DX: Z47.1 Aftercare following joint replacement surgery (principal); Z96.651 Presence of right artificial knee joint; Z48.02 Encounter for removal of sutures; L50.0 Allergic urticaria; T40.2X5D Adverse effect of other opioids, subsequent encounter | CPT/HCPCS: 99212 ==

== ENCOUNTER → 2020-06-13 09:14 | Outpatient (BNVA) | payer MEDICARE, MEDICAID, SELFPAY | PROVIDERS: PCP Internal Medicine; Referring Provider Internal Medicine; Visit Provider Orthopaedic Surgery | DX: Z96.651 Presence of right artificial knee joint (principal) | CPT/HCPCS: 99212 ==

== ENCOUNTER → 2020-07-18 08:34 | Outpatient (BNVA) | payer OTHER, SELFPAY | PROVIDERS: PCP Internal Medicine; Visit Provider Orthopaedic Surgery | DX: Z47.1 Aftercare following joint replacement surgery (principal); Z96.651 Presence of right artificial knee joint | CPT/HCPCS: 99212 ==

== ENCOUNTER 2020-08-27 11:00 | Outpatient (RCR) | payer MEDICAID, MEDICARE, OTHER, SELFPAY ==
--- NOTE | 2020-06-07 08:47 | MHC.PT.EP ---
[facility] [place] Office [place] Office [place] Office [address] Sandy Rausch [address] [phone] F: [phone] F: [phone] F: [phone] F: [phone] Physical Therapy Plan of Care Date of Evaluation: 06/07/20 Date of Surgery: 05/01/2020 Diagnosis: unilateral primary osteoarthritis of right knee Assessment: pt presents to physical therapy with pain, decreased range of motion, decreased strength, impaired functional mobility, impaired postural awareness, and gait deviations. pt is a good candidate for skilled PT due to age, potential remediation of impairments, typical disease/condition progression and prognosis, comorbidities, and motivation. pt would benefit from tailored strengthening and stretching exercise program, functional training, gait training, postural re-training, neuromuscular re-education, modalities as needed for pain, equipment safety demonstration. Frequency and Duration: The patient will be seen 2x/wk for 6 wks Short Term Goals: pt will be I w/ HEP to promote self-management of condition. pt will increase R knee extension to 0 deg to promote normalized gait mechanics on even ground w/ LRAD. Fpc Goals: pt will report statistically significant improvement in self-reported outcome measure, LEFI, to promote return to PLOF. pt will ascend/descend 12 stairs step over step w/ LRAD to promote return to PLOF. Treatment Plan: Modalities to reduce pain, spasms and effusion. Manual therapy to restore motion and function. Therapeutic exercise to improve strength and flexibility. Neuromuscular re-education for posture and balance. Therapeutic activities to return to functional activities of daily living. Please sign and return to therapist. Thank you for your referral.
--- NOTE | 2020-08-27 11:41 | MHC.PT.DC ---
[facility] [place] Office [place] Office [place] Office [address] Sandy Rausch [address] [phone] F: [phone] F: [phone] F: [phone] F: [phone] Physical Therapy Discharge Report Diagnosis: unilateral primary osteoarthritis of right knee Date of Surgery: 05/01/2020 Date of Evaluation: 06/07/20 Date of Discharge: 08/27/20 Treatments to Date: 14 Cancellations to Date: 0 No Shows to Date: 0 Discharge Status: Achieved Goals Improved Function Independent with HEP Discharge Summary: The patient arrived reporting she feels ready to manage her post-operative status on her own. She has full knee ROM and full strength of R knee. Her knee still has intermittent swelling and pain but she continues to remain motivated. She is independent with her home exercise program. She was given an updated and complete list today via handout. She is discharged from this physical therapy plan of care at this time. Electronically signed by: Ana Hayes PT, DPT Please sign and return to therapist. Thank you for your referral.
== END 2020-08-27 11:42 | disposition other institution (70) ==
LOC: HO.PT 11:00
PROVIDERS: PCP Internal Medicine; Visit Provider Orthopaedic Surgery
DX: Z96.651 Presence of right artificial knee joint (principal)
CPT/HCPCS: 97110; 97112; 97140; 97161; 97164; 97530

== ENCOUNTER → 2021-01-23 11:29 | Outpatient (BNVA) | payer OTHER, SELFPAY | PROVIDERS: Visit Provider Orthopaedic Surgery | DX: Z47.1 Aftercare following joint replacement surgery (principal); Z96.651 Presence of right artificial knee joint | CPT/HCPCS: 99212 ==

== ENCOUNTER 2021-03-05 07:57 | Outpatient (REF) | payer OTHER, SELFPAY ==
--- NOTE | ~2021-03-05 | XR_ITS ---
EXAMINATION: XR HAND, LEFT CLINICAL INFORMATION: Left hand pain. COMPARISON: None TECHNIQUE: 5 views of the left hand. FINDINGS: Patient is status post fusion of the left 1st metacarpophalangeal joint with 2 pins and cerclage wire noted. There appears be some degree of bony union. Patient also appears be status post resection of the trapezoid. A surgical anchor is seen about the base of the 2nd metacarpal. There is narrowing with sclerosis seen involving the scaphotrapezoid joint. There are some dystrophic calcification seen about the base of the 1st metacarpal. There appears be some dystrophic calcification about the volar aspect of the triangular fibrocartilage. There is some degenerative spurring seen involving the 1st interphalangeal joint and the 2nd through 5th distal interphalangeal joints. No acute fracture is evident. No dislocation seen. XR/XR hand LT min 3V IMPRESSION: Postsurgical changes as described. Degenerative changes as noted.
== END 2021-03-05 07:58 | disposition home or self-care (01) ==
LOC: HO.HOSX 07:57
PROVIDERS: Visit Provider Orthopaedic Surgery
DX: M79.642 Pain in left hand (principal)
CPT/HCPCS: 73130; 99202

== ENCOUNTER 2021-04-28 08:31 | Outpatient (REF) | payer OTHER, SELFPAY ==
--- NOTE | ~2021-04-28 | XR_ITS ---
EXAMINATION: XR KNEE-BILATERAL CLINICAL INFORMATION: Right knee pain. COMPARISON: Radiographs of the right knee done on 05/01/2020. TECHNIQUE: 3 views of the right knee and upright frontal view of both knees were obtained. FINDINGS: Right knee: Postsurgical changes of total right knee arthroplasty is noted with intact hardware and satisfactory alignment. Note is however made of significant interval patellar as well as suprapatellar soft tissue swelling. Frontal view of both knees in upright position shows satisfactory alignment of the hardware and mild degenerative No soft tissue abnormality within the left knee. XR/XR knee RT 2V IMPRESSION: 1. Postsurgical changes of total right knee arthroplasty showing intact hardware and satisfactory alignment. 2. Note is made of significant soft tissue swelling identified in the suprapatellar region on the right. 3. Mild osteoarthrosis at both medial and lateral compartment of the left knee, seen on upright Limited frontal view.
--- NOTE | ~2021-04-28 | XR_ITS ---
EXAMINATION: XR KNEE-BILATERAL CLINICAL INFORMATION: Right knee pain. COMPARISON: Radiographs of the right knee done on 05/01/2020. TECHNIQUE: 3 views of the right knee and upright frontal view of both knees were obtained. FINDINGS: Right knee: Postsurgical changes of total right knee arthroplasty is noted with intact hardware and satisfactory alignment. Note is however made of significant interval patellar as well as suprapatellar soft tissue swelling. Frontal view of both knees in upright position shows satisfactory alignment of the hardware and mild degenerative No soft tissue abnormality within the left knee. XR/XR knee standing BI IMPRESSION: 1. Postsurgical changes of total right knee arthroplasty showing intact hardware and satisfactory alignment. 2. Note is made of significant soft tissue swelling identified in the suprapatellar region on the right. 3. Mild osteoarthrosis at both medial and lateral compartment of the left knee, seen on upright Limited frontal view.
== END 2021-04-28 08:32 | disposition home or self-care (01) ==
LOC: HO.HOSX 08:31
PROVIDERS: Visit Provider Orthopaedic Surgery
DX: T84.84XA Pain due to internal orthopedic prosthetic devices, implants and grafts, initial encounter (principal); Z96.651 Presence of right artificial knee joint
CPT/HCPCS: 73560; 73565; 99212

== ENCOUNTER 2022-09-25 09:44 | Outpatient (REF) | payer OTHER, SELFPAY ==
--- NOTE | ~2022-09-25 | XR_ITS ---
EXAMINATION: XR KNEES, BILATERAL STANDING XR KNEE, RIGHT CLINICAL INDICATION: Pain knee. COMPARISON: 04/28/2021. TECHNIQUE: Single standing view of both knees with 2 additional views right knee. FINDINGS: Again seen is a right total knee prosthesis which appears in good position without evidence of loosening. No fractures are seen. Only an AP view of the left knee is included. Moderate degenerative changes are present in the left knee with narrowing in the medial compartment. XR/XR knee standing BI IMPRESSION: Right total knee prosthesis in good position without evidence of loosening or fracture.
--- NOTE | ~2022-09-25 | XR_ITS ---
EXAMINATION: XR KNEES, BILATERAL STANDING XR KNEE, RIGHT CLINICAL INDICATION: Pain knee. COMPARISON: 04/28/2021. TECHNIQUE: Single standing view of both knees with 2 additional views right knee. FINDINGS: Again seen is a right total knee prosthesis which appears in good position without evidence of loosening. No fractures are seen. Only an AP view of the left knee is included. Moderate degenerative changes are present in the left knee with narrowing in the medial compartment. XR/XR knee RT 2V IMPRESSION: Right total knee prosthesis in good position without evidence of loosening or fracture.
== END 2022-09-25 09:45 | disposition home or self-care (01) ==
LOC: HO.HOSX 09:44
PROVIDERS: Visit Provider Orthopaedic Surgery
DX: Z96.651 Presence of right artificial knee joint (principal)
CPT/HCPCS: 73560; 73565; 99212